=== PATIENT | female | born 1990 | race Caucasian/White ===

== ENCOUNTER → 2016-09-07 09:44 | Outpatient (CLI) | payer MEDICAID | END | disposition home or self-care (01) | LOC: D.LDO 09:44 | DX: O36.8190 Decreased fetal movements, unspecified trimester, not applicable or unspecified (principal) ==

== ENCOUNTER 2016-09-19 05:26 | Inpatient (IN) | payer MEDICAID ==
[~2016-09-19] VITALS: Ht 165.1 cm; Wt 112.9 kg
[2016-09-19] VITALS (14 sets, daily range): BP systolic 106–130; BP diastolic 50–79; Ht 165.1 cm; Wt 112.9 kg
[2016-09-19] MEDS ORDERED: PRENATAL COMPLE1 TAB PO (06:26)
[2016-09-19] MEDS ORDERED: FOLIC ACID (06:27)
[2016-09-19 07:00] LABS: HEMATOCRIT 36.8 % (36.0-48.0); HEMOGLOBIN 12.5 g/dL (12-16); MCH 30.3 pg (26.0-34.0); MCV 89.3 fL (80.0-100.0); MEAN PLATELET VOLUME 11.1 fL (7.4-10.4); RBC 4.12 10x6/uL (4.00-5.40); WBC 14.5 10x3/uL (4.8-10.8)
--- NOTE | 2016-09-19 08:34 | NUR ---
BABY DELIVERED AT 0812 SENT TO NURSERY WITH NURSE AND FATHER
[2016-09-19 08:37] LABS: APPEARANCE SLT CLOUDY (CLEAR); BACTERIA MANY /hpf (NONE SEEN); BILIRUBIN NEGATIVE (NEGATIVE); COLOR YELLOW (YELLOW); GLUCOSE NEGATIVE (NEGATIVE); HYALINE CAST RARE /lpf (NONE SEEN); KETONE MODERATE mg/dL (NEGATIVE); LEUKOCYTE ESTERASE TRACE (NEGATIVE); MUCUS <1+ /lpf (NONE SEEN); NITRITE NEGATIVE (NEGATIVE); PROTEIN NEGATIVE (NEGATIVE); UROBILINOGEN NORMAL (NORMAL); WHITE CELLS - URINE 0-5 /hpf (0-5)
[2016-09-19 08:40] LABS: CALCIUM OXALATE CRYSTALS OCC /hpf (NONE SEEN)
--- NOTE | 2016-09-19 09:02 | NUR ---
FUNDUS 2 ABOVE UMBILLICUS, FIRM, MIDLINE. MINIMAL LOCHIA. T-6
--- NOTE | 2016-09-19 09:15 | NUR ---
RECEIVED PT TO [facility] #[id number] BY BED FROM RR POST SECTION THIS MORNING BY DR. COOK. PT HAS LARGE WHITE DRESSING OVER C/S INCISION, C/D/I. FUNDUS FIRM, U/2, SMALL RUBRA LOCHIA, NO CLOTS. PERIPADS ARE IN PLACE. PT HAS COLE CATH IN PLACE, DRAINING YELLOW URINE, WITH 250 ML'S NOTED IN UROMETER. PT HAS SCD'S ON, CONNECTED TO MACHINE. IV TO RIGHT HAND INFUSING LR WITH 20 UNITS ADDED BY OR/RR AT MODERATE RATE. SEE EMAR FOR ALL MED ADM BY THIS RN. ICE INES PLACED OVER GOWN TO INCISION. PT SERVED FRESH GLASS OF ICE WATER. PT DENIES N/V, SOB, OR DIZZINESS. VS OBTAINED. SR UP X 2, CALL LIGHT AND PHONE WITHIN REACH.
--- NOTE | 2016-09-19 09:41 | NUR ---
DILAUDID GLUE DRIER OPERATOR SET ON PUMP, WITH MEDICATION EXPLAINED TO PT, GLUE DRIER OPERATOR BUTTON WITHIN REACH. INCENTIVE SPIROMETER EXPLAINED TO PT WITH RETURN DEMONSTRATION, COUGHING AND DEEP BREATHING EXERCISES DEMONSTRATED ALSO. PT ABLE TO WIGGLE BOTH FEET AT THIS TIME. SR UP X 2, CALL LIGHT AND PHONE WITHIN REACH. PT DENIES OTHER NEEDS.
--- NOTE | 2016-09-19 12:30 | NUR ---
FUNDUS FIRM, U/2, SMALL RUBRA LOCHIA, NO CLOTS EXPRESSED. PERICARE DONE WITH FOAM CLEANSER, PINK PAD/CHUX AND PERIPADS CHANGED. CLEAN GOWN ON. FRESH ICE WATER SERVED. FRESH ICE INES APPLIED TO GOWN OVER INCISION. SR UP 2, CALL LIGHT AND PHONE WITHIN REACH. PT DENIES OTHER NEEDS AT THIS TIME.
--- NOTE | 2016-09-19 13:20 | NUR ---
PT RESTING, DENIES NEEDS. SR UP X 2, CALL LIGHT AND PHONE WITHIN REACH.
--- NOTE | 2016-09-19 15:00 | NUR ---
TO ROOM, FUNDUS FIRM, U/2, SCANT RUBRA LOCHIA, NO CLOTS. PERICARE DONE WITH FOAM CLEANSER, PERIPADS/CHUX CHANGED. COLE CATH CONTINUES TO DRAIN YELLOW URINE, WITH 300 ML'S NOTED OUT. FRESH ICE INES PLACED OVER GOWN, TO INCISION. SR UP X2, CALL LIGHT AND PHONE WITHIN REACH. AT BEDSIDE.
[2016-09-19 15:28] LABS: BASOPHILS 0.1 % (0-2); EOSINOPHILS 0.2 % (0-7); HEMATOCRIT 32.9 % (36.0-48.0); HEMOGLOBIN 11.2 g/dL (12-16); IMMATURE GRANULOCYTES 0.4 % (0-5); LYMPHOCYTES 15.5 % (15-50); MCH 30.1 pg (26.0-34.0); MCV 88.4 fL (80.0-100.0); MEAN PLATELET VOLUME 11.1 fL (7.4-10.4); MONOCYTES 5.6 % (2-11); NEUTROPHILS 78.2 % (40-80); PLATELET COUNT 251 10x3/uL (130-400); RBC 3.72 10x6/uL (4.00-5.40); WBC 16.5 10x3/uL (4.8-10.8)
--- NOTE | 2016-09-19 18:00 | NUR ---
FUNDUS FIRM, U/2, SMALL RUBRA LOCHIA, NO CLOTS, PERICARE DONE WITH FOAM CLEANSER, PINK PAD/CHUX/PERIPADS CHANGED, GOWN CHANGED. IVF'S CLEARED WITH PITOCIN TOTAL AT 1064 ML'S, AND ENVIRONMENTAL HEALTH TECHNICIAN TOTAL IS 2 ML'S. FRESH ICE INES APPLIED TO INCISION OVER GOWN. ABDOMEN REMAINS SOFT TO PALPTE. COLE CATH CONTINUES TO DRAIN DARK YELLOW URINE, WITH 900 ML'S TOTAL EMPTIED, SCD'S REMAIN ON. FRESH ICE WATER SERVED. PT DENIES OTHER NEEDS. SR UP X2, CALL LIGHT AND PHONE WITHIN REACH.
--- NOTE | 2016-09-19 19:25 | NUR ---
PM ROUNDS MADE, PT VISITING WITH FOB, INFORMED PT THAT I WILL BE BACK SHORTLY TO DO ASSESSMENT, PT VERBALIZES UNDERSTANDING, DENIES NEEDS AT THIS TIME
--- NOTE | 2016-09-19 20:15 | NUR ---
ASSESSMENT PER FLOW SHEET, VS OBTAINED, IV IN RIGHT HAND INTACT WITH NO REDNESS OR EDEMA INFUSING VIA PUMP NS WITH PITOCIN AT 125 ML/HR, DILAUDID HOG SLAUGHTERER TO DELIVER 0.2MG/10MINS PER PT'S DEMAND FOR PAIN CONTROL, PT RATES INC PAIN 09/24, FF, ML, 1/U, LITE BLEEDING NOTED WITH NO CLOTS, BIKINI INC WITH PRIMAPORE DRESSING CDI WITH NO DRAINAGE NOTED, FRESH ICE PACK TO ABD, PT DENIES FLATUS, COLE CATH INTACT DRAINING DARK YELLOW URINE, PT ENC TO DRINK PLENTY OF FLUIDS, FRESH H20 SERVED, SCD'S ON AND WORKING PROPERLY, PT INST ON AND VERBALIZES UNDERSTANDING OF INCENTIVE SPIROMETER, PT DENIES FURTHER NEEDS, DR SAUL TO ROOM TO TALK TO PT ABOUT BABY
--- NOTE | 2016-09-19 20:35 | NUR ---
DR TROY NOTIFIED, REQUEST OF 12 HOUR POST OP DUE TO PT'S BABY ON THE UNIT, ORDERS TO SALINE LOCK IV, D/C COLE AND START PO PAIN MED, SEE ORDERS
--- NOTE | 2016-09-19 20:42 | NUR ---
POC DISCUSSED WITH PT ABOUT 12 HOUR POST OP, PT VERY APPRECIATIVE AND VERBALIZES UNDERSTANDING, ADM TORADOL SIVP PER MD ORDERS, SEE EMAR, INFORMED PT THAT I WILL BE BACK IN ABOUT 30 MINUTES OR SO TO SALINE LOCK IV AND REMOVED COLE, PT VERBALIZES UNDERSTANDING, DENIES FURTHER NEEDS, BEDDING PROVIDED TO FOB
--- NOTE | 2016-09-19 21:29 | NUR ---
ADM NORCO PO PER MD ORDERS, SEE EMAR, IV CONVERTED TO SALINE LOCK, FLUSHED WITH 10 MLS OF NS WITH NO DIFFICULTY, COLE CATH REMOVED, TIP INTACT, PT INST ON AND VERBALIZES UNDERSTANDING ABOUT GETTING UP THE FIRST TIME, SERVED DONNY PUDDING, DENIES FURTHER NEEDS, FOB AT BEDSIDE
--- NOTE | 2016-09-19 22:30 | NUR ---
PT WATCHING TV, RATES BACK PAIN 3/10, REPORTS INC PAIN IS "GOOD", PT DENIES NEEDS AT THIS TIME, FOB ASLEEP IN RECLINER
--- NOTE | 2016-09-19 22:40 | NUR ---
BREAST PUMP TAKEN TO PT ROOM. EXPLANATION ON USE PROVIDED. PT VERBALIZED UNDERSTANDING AND WILL CALL IF HELP IS NEEDED. LOAN RELEASE SHEET SIGNED AND WITNESSED PER THIS RN. PT DENIES FURTHER NEEDS AT THIS TIME.
[2016-09-20 00:25] VITALS: BP 101/61
--- NOTE | 2016-09-20 00:25 | NUR ---
PT RESTING WITH EYES CLOSED, AROUSES TO SOFT VERBAL STIMULATION, VS OBTAINED, PT UP TO BR WITH ASSISTANCE, GAIT STEADY, PT VOIDED 450 MLS OF BLOOD TINGED URINE BY SELF WITH NO DIFFICULTY, ASSISTED PT WITH ANTONIETTA CARE, ANTONIETTA PAD, ANTONIETTA PANTIES AND GOWN, PINK PAD AND BLUE CHUX CHANGED, FRESH ICE PACK PROVIDED, PT TO NSY WITH ASSISTANCE, GAIT STEADY
--- NOTE | 2016-09-20 00:45 | NUR ---
PT BACK TO ROOM, GAIT STEADY, WITH LEILA GAITAN RN, TO ASSIST PT WITH BREAST PUMPING
--- NOTE | 2016-09-20 01:10 | NUR ---
PT ENTRY LEVEL ELECTRICIAN LIGHT, PT FINISHED USING BREAST PUMP, PT LAYING BACK DOWN, SCD'S APPLIED AND WORKING PROPERLY, FRESH ICE PACK TO ABD, RATES INC PAIN 2/, DENIES FURTHER NEEDS AT THIS TIME, FOB ASLEEP IN RECLINER
--- NOTE | 2016-09-20 02:08 | NUR ---
PT RESTING WITH EYES CLOSED, RESP QUIET, NO DISTRESS NOTED, LEFT UNDISTURBED AT THIS TIME, FOB ASLEEP IN RECLINER
[2016-09-20 04:22] VITALS: BP 95/59
--- NOTE | 2016-09-20 04:22 | NUR ---
PT RESTING WITH EYES CLOSED, AROUSES TO SOFT VERBAL STIMULATION, VS OBTAINED, PT UP TO BR, GAIT STEADY, VOIDED 400 MLS OF LIGHTLY BLOOD TINGED URINE BY SELF WITH NO DIFFICULTY, PT BACK TO BED, FRESH ICE PACK TO ABD, SCD'S RECONNECTED AND WORKING PROPERLY, ADM NORCO AND MOTRIN PO PER MD ORDERS, SEE EMAR, PT DENIES FURTHER NEEDS, FOB AT BEDSIDE
--- NOTE | 2016-09-20 06:08 | NUR ---
PT RESTING WITH EYES CLOSED, RESP QUIET, NO DISTRESS NOTED, LEFT UNDISTURBED AT THIS TIME, FOB AWAKE AT BEDSIDE
[2016-09-20 06:12] LABS: BASOPHILS 0.2 % (0-2); EOSINOPHILS 0.8 % (0-7); HEMATOCRIT 32.9 % (36.0-48.0); IMMATURE GRANULOCYTES 0.5 % (0-5); LYMPHOCYTES 21.4 % (15-50); MCH 30.3 pg (26.0-34.0); MCHC 33.4 g/dL (31.0-37.0); MEAN PLATELET VOLUME 10.9 fL (7.4-10.4); MONOCYTES 6.1 % (2-11); PLATELET COUNT 236 10x3/uL (130-400); RBC 3.63 10x6/uL (4.00-5.40); RDW 13.5 % (11.5-14.5); WBC 14.7 10x3/uL (4.8-10.8)
[2016-09-20 06:14] LABS: RAPID PLASMA REAGIN Non Reactive (Non Reactive)
[2016-09-20 06:20] LABS: MCV 90.6 fL (80.0-100.0)
--- NOTE | 2016-09-20 06:55 | NUR ---
SHIFT REPORT TO CARLOS ENRIQUE ARCHIBALD RN
[2016-09-20 07:15] VITALS: BP 98/58
--- NOTE | 2016-09-20 07:15 | NUR ---
PT IS RECEIVED LYING IN BED. SHE IS WATCHING TV. FOB AT BEDSIDE. BED IS LOW. SIDE RAILS UP X 2 AND CALL LIGHT IN REACH. GEN- AWAKE AND ALERT. STATES HER PAIN IS A 4 AND MAINLY IN HER BACK. SHE HAS BEEN VOIDING WITHOUT DIFFICULTY. HAS VOIDED TWICE SINCE COLE WAS TAKEN OUT. LUNGS- CLEAR. HEART- RRR. ABD - SOFT WITH TENDERNESS. BS+ BIKINI LINE INCISION WITH PRIMAPORE DRESSING INTACT. EXT- MINIMAL EDEMA. SALINE LOCK NOTED R HAND- PATENT.
--- NOTE | 2016-09-20 08:09 | NUR ---
DR COOK HERE TO SEE PT. NEW ORDERS NOTED.
--- NOTE | 2016-09-20 08:43 | NUR ---
PT IS UP TO BATHROOM. VOIDED 450 CC BLOOD TINGED URINE.
--- NOTE | 2016-09-20 09:00 | NUR ---
DIETITIAN CHIEF TALKING TO PT ABOUT FEEDING. PT DENIES ANYTHING FOR PAIN.
--- NOTE | 2016-09-20 09:39 | NUR ---
PT IS UP WALKING IN HALLWAYS WITH FOB. TOLERATED WELL. WALKED ABOUT 150 FT.
--- NOTE | 2016-09-20 09:44 | NUR ---
PT REQUESTED ICE PACK. STATES THAT IT MAKES HER INCISION FEEL BETTER.
--- NOTE | 2016-09-20 10:29 | NUR ---
Marcelo Wagoner 09/20/16 LE@ 8:30 S: Patient states while crying had to go into the nursery due breathing, she has been able to see him, just not latch him for feeding. O: Patient sitting up in bed, pumping right breast, infant in nursery. Explained breastmilk composition, since baby isn't able to latch right now, pump will be used in place of infant. It's important to try and pump every 2-3 hours in the day and 3-4 at night. Pump both breasts at the same time. You can pump for 15 minutes or an additional 5 minutes if the milk is flowing past 15 minutes. It's ok to feel discourage at times, it's normal. Patient is doing a great job; just take things one day at a time. Pumping will help your body know milk is needed. takes time and patience's. Pump on the lowest setting at first and gradually increase. When pumping your body will not produce a lot in the bottle that is normal, for first feeding he only needed one teaspoon on colostrum. Your colostrum will increase by volume daily, provided lanolin and explain purpose of use. Encouraged to continue to pump until is able to latch, asked if any questions or concerns, client declined at this time, thanked . Provided work cell number, please call as needed, will follow up. A: Patient emotional due to not having in room, pumping. P: Continue to pump every 2-3 hours in the day for at least 15 minutes and 3-4 hours at night to help with establishing her milk supply. Laci Bruner, CLC
--- NOTE | 2016-09-20 10:59 | NUR ---
PT REQUESTED PAIN MED. STATES HER PAIN IS ABOUT A 6 IN ABDOMEN AND RIGHT SIDE. PAIN MED GIVEN. SALINE LOCK WAS ALSO D'CD/ TIP INTACT. PRESSURE DRESSING APPLIED.
--- NOTE | 2016-09-20 12:23 | NUR ---
PT IS SITTING UP IN BED EATING LUNCH. SHE OFFERS NO COMPLAINTS. HER PAIN LEVEL IS ABOUT A 3 NOW. FOB AT BEDSIDE. BED IS LOW. SIDE RAILS UP X 2 AND CALL LIGHT IN REACH.
--- NOTE | 2016-09-20 13:41 | NUR ---
PT STATES PAIN IS ABOUT A 2. SHE WANTS TO GET UP AND SHOWER SOON. TOOK HER TOWELS AND OTHER ITEMS NEEDED FOR HER TO TAKE A SHOWER.
--- NOTE | 2016-09-20 14:39 | NUR ---
PT HAS BEEN USING BREASTPUMP. STATES THAT SHE PUMPED FOR 15 MIN AND DID NOT GET ANYTHING.
--- NOTE | 2016-09-20 15:26 | NUR ---
PT IS IN THE NURSERY ROCKING HER BABY. I INFORMED HER THAT WE WOULD BE MOVING HER TO LABOR AND DELIVERY AND CLOSING WOMEN'S SERVICES.
--- NOTE | 2016-09-20 16:07 | NUR ---
PT IS IN SHOWER. FOB AT BEDSIDE.
--- NOTE | 2016-09-20 16:37 | NUR ---
PT WAS TRANSFERRED TO ROOM 1 ON LABOR AND DELIVERY DUE TO WOMEN'S CLOSING DOWN. PT AMBULATED TO ROOM AND TOLERATED WELL. PT REQUESTED PAIN MED AND THIS WAS GIVEN TO HER. GIVEN HER NORCO AND MOTRIN. STATES PAIN IS ABOUT A 6.
--- NOTE | 2016-09-20 17:50 | NUR ---
VISITOR TO ROOM, PT DENIES NEEDS AT THIS TIME. PT AMBULATORY IN ROOM. SR UP X2, CALL LIGHT AND PHONE WITHIN REACH.
--- NOTE | 2016-09-20 18:53 | NUR ---
REPORT GIVEN TO 7 P SHIFT.
--- NOTE | 2016-09-20 19:19 | NUR ---
Pt ambulatory in hallway with family member.
--- NOTE | 2016-09-20 19:40 | NUR ---
PT AMBULATORY FROM NSY TO ROOM. PM ASSESSMENT COMPLETE. PT REPORTS VOIDING WITHOUT DIFFICULTY. FUNDUS FIRM AND MIDLINE 1FB BELOW UMBILLICUS. SCANT LOCHIA. INCISION WELL APPRX WITH SANKET INTACT. NO S/S INFECTION. PT REPORTS PASSING GAS. DENIES N/V. EATING REGULAR DIET AND TOLERATING WELL. REPORTS PRN PAIN MED WORKING WELL. DENIES PAIN. ENCOURAGED AMBULATION AND FREQUENT URINATION. INSTRUCTED TO CALL FOR ANY NEEDS/CONCERNS. VERB UNDERSTANDING. NO QUESTIONS VOICED.
[2016-09-20 19:42] VITALS: BP 125/65
--- NOTE | 2016-09-20 20:21 | NUR ---
PRN pain med administered per pt request. No other needs voiced.
--- NOTE | 2016-09-20 22:00 | NUR ---
Pt resting with eyes closed. S/O at bedside. Call light in reach.
--- NOTE | 2016-09-21 00:38 | NUR ---
Pt requesting prn pain med. See EMAR for biomedical technician. Pt reports she is resting well. Lochia remains scant with no clots. Voiding without difficulty. Fresh ice water provided. Call light in reach. Bed low. SR upx2. S/O in room.
--- NOTE | 2016-09-21 02:00 | NUR ---
Pt and s/o continue to sleep. NAD noted. Call light in reach. Bed low. SR upx2.
[2016-09-21 04:36] VITALS: BP 107/61
--- NOTE | 2016-09-21 04:36 | NUR ---
Pt request prn pain med. See EMAR. Pt repositioning self in bed. VS obtained. Lochia scant without clots. Voiding without difficulty. Fresh ice water provided. No other needs voiced. SR upx2. Bed low. Call light in reach.
--- NOTE | 2016-09-21 06:00 | NUR ---
Pt resting with eyes closed. NAD noted. Call light in reach. Bed low. SR upx2. s/o in room.
--- NOTE | 2016-09-21 07:35 | NUR ---
Pt up and walking about room, rates her pain at 2/10 and states understanding of when pain med can be given again. Provided with info about rooming in so that she can read over and ask any questions. Spouse given written script for [place] 10/325mg and Motrin 600mg and pt will call when he returns with those meds. Bikini incision clean and dry and she voices understanding to continue care of area. Denies any clots with voids and states that her bleeding is very light. Denies any needs at this time.
[2016-09-21 08:30] VITALS: BP 122/73
--- NOTE | 2016-09-21 08:39 | NUR ---
pain med given as charted on emar. Questions answered about dietary with rooming in.
--- NOTE | 2016-09-21 09:18 | NUR ---
Rates pain at 1/10. pumping at this time and will notify when finished so that discharge paperwork can be given.
--- NOTE | 2016-09-21 11:09 | NUR ---
THIS RN TO BEDSIDE. PT CURRENTLY SITTING UP IN ROCKER USING BREAST PUMP. TDAP INFO SHEET PROVIDED W/TEACHING. PT AND SIG OTHER ASKED TO READ INFORMATION AND ONCE PT HAS FINISHED PUMPING RING CALL LIGHT TO RING CALL LIGHT TO LET THIS RN KNOW IF SHE DESIRES TO RECEIVE THE TDAP.
--- NOTE | 2016-09-21 11:30 | NUR ---
PT RINGS CALL LIGHT. THIS RN TO BEDSIDE FOR DISCHARGE TEACHING. PT PROVIDED W/PP CARE FOR INCISION, AND FOLLOW APPTS W/PRESCRIPTIONS PROVIDED. PT DENIES QUESTIONS AT THIS TIME. SIG OTHER PRESENT FOR DISCHARGE TEACHING.
--- NOTE | 2016-09-21 12:24 | NUR ---
DTAP GIVEN TO RT ARM. PT TOLERATED WELL. PT CONTINUES TO DENIES QUESTIONS AT THIS TIME. PT TO FINISH HER DESSERT FOR BEING MOVED TO .
--- NOTE | 2016-09-21 12:45 | NUR ---
PT TRANSFERED AMBULATORY TO [id number]. ORIENTED TO ROOM. ADDITIONAL PADS AND PANTIES PROVIDED. PT VERBALIZES UNDERSTANDING OF NOW, SHE IS NO LONGER A PT AT THE HOSPITAL. UNDERSTANDS THAT SHE WILL NEED TO TAKE THE MEDICATION THAT HER SIG OTHER PICKED UP FOR HER. NURSING STAFF IS STILL AVAILABLE FOR QUESTIONS IF SHE HAS ANY.
== END 2016-09-21 12:45 | disposition home or self-care (01) | DRG 766 ==
LOC: D.LD 05:26 → D.WS 05:26 → D.SDCHOLD 07:30 → D.WS 09:15 → D.LD 09-20 16:40
PROVIDERS: ADMIT Obstetrics & Gynecology
PROC: 10D00Z1 Extraction of Products of Conception, Low, Open Approach (ICD-10-PCS; principal; 2016-09-19 07:30)
DX: O32.1XX0 Maternal care for breech presentation, not applicable or unspecified (principal); O99.214 Obesity complicating childbirth; Z3A.39 39 weeks gestation of pregnancy; Z37.0 Single live birth